=== PATIENT | female | born 1985 | race Caucasian/White ===

== ENCOUNTER 2025-06-27 06:19 | Day surgery (SDC) | payer OTHER, SELFPAY | END 2025-06-27 12:17 | disposition home or self-care (01) | LOC: GI 06:19 | PROVIDERS: ATTENDING PHYSICIAN Internal Medicine | DX: D50.9 Iron deficiency anemia, unspecified (principal); R63.4 Abnormal weight loss; K55.20 Angiodysplasia of colon without hemorrhage; K52.9 Noninfective gastroenteritis and colitis, unspecified; K62.89 Other specified diseases of anus and rectum; R14.0 Abdominal distension (gaseous); K44.9 Diaphragmatic hernia without obstruction or gangrene; K22.89 Other specified disease of esophagus; R10.13 Epigastric pain; K90.0 Celiac disease; K29.70 Gastritis, unspecified, without bleeding; K62.1 Rectal polyp; K52.831 Collagenous colitis; K29.50 Unspecified chronic gastritis without bleeding; B37.81 Candidal esophagitis | CPT/HCPCS: 45380; 45382; 43239; 88305; 88313; 88342 ==